=== PATIENT | female | born 1965 | race Caucasian/White ===

== ENCOUNTER 2017-10-20 18:41 | Emergency (ER) | payer BC, OTHER ==
--- NOTE | 2017-10-20 19:51 | UC ---
Abdominal Pain Female HPI - HPI Summary HPI Summary: Abdomen pain began at 0530 this am, diarrhea times one, nausea no vomiting--- - History of Current Complaint Chief Complaint: UCAbdominalPain Stated Complaint: TIRED, STOMACH ACHE Time Seen by Provider: 10/20/17 19:44 Hx Obtained From: Patient ?: No Onset/Duration: Sudden Onset, Lasting Hours, Still Present Timing: Constant Severity Initially: Moderate Severity Currently: Moderate Location: Diffuse Radiates: No Character: Aching, Cramping Aggravating Factor(s): Food Alleviating Factor(s): Nothing Associated Signs and Symptoms: Positive: Decreased Appetite, Nausea, Diarrhea Allergies/Adverse Reactions: Allergies Allergy/AdvReac Type Severity Reaction Status Date / Time No Known Allergies Allergy Verified 10/20/17 18:52 PMH/Surg Hx/FS Hx/Imm Hx Previously Healthy: No Endocrine History: Dyslipidemia Cardiovascular History: Hypertension - Surgical History Surgical History: None - Family History Known Family History: Positive: None - Social History Occupation: Employed Full-time Lives: With Family Alcohol Use: Occasionally Substance Use Type: None Smoking Status (MU): Never Smoked Tobacco Review of Systems Constitutional: Fatigue Skin: Negative Eyes: Negative ENT: Negative Respiratory: Negative Cardiovascular: Negative Gastrointestinal: Abdominal Pain, Diarrhea, Nausea Genitourinary: Negative Motor: Negative Neurovascular: Negative Musculoskeletal: Negative Neurological: Negative Psychological: Negative Is Patient Immunocompromised?: No All Other Systems Reviewed And Are Negative: Yes Physical Exam Triage Information Reviewed: Yes Appearance: Well-Appearing, No Pain Distress, Well-Nourished Vital Signs: Initial Vital Signs Temp 98.8 F 10/20/17 18:48 Pulse 134 10/20/17 18:48 Resp 12 10/20/17 18:48 BP 138/75 10/20/17 18:48 Pulse Ox 96 10/20/17 18:48 Vital Signs Reviewed: Yes Eye Exam: Normal Eyes: Positive: Conjunctiva Clear ENT Exam: Normal ENT: Positive: Normal ENT inspection, Hearing grossly normal, Pharynx normal. Negative: Nasal congestion, Nasal drainage, Trismus, Muffled voice, Hoarse voice , Dental tenderness, Sinus tenderness Dental Exam: Normal Neck exam: Normal Neck: Positive: Supple, Nontender, No Lymphadenopathy Respiratory Exam: Normal Respiratory: Positive: Chest non-tender, Lungs clear, Normal breath sounds, No respiratory distress, No accessory muscle use Cardiovascular Exam: Normal Cardiovascular: Positive: No Murmur, Pulses Normal, Brisk Capillary Refill, Tachycardia - is dehydrated sg 1.025 Abdominal Exam: Normal Abdomen Description: Positive: No Organomegaly, Soft, Other: - diffuse discomfort. Negative: CVA Tenderness (R), CVA Tenderness (L), Distended, Guarding Bowel Sounds: Positive: Present Musculoskeletal Exam: Normal Musculoskeletal: Positive: Strength Intact, ROM Intact, No Edema Neurological Exam: Normal Neurological: Positive: Alert, Muscle Tone Normal Psychological Exam: Normal Skin Exam: Normal Re-Evaluation - Re-Evaluation First Eval Change: Improved - taking po fluids well after zofran Abd Pain Female Course/Dx - Course Course Of Treatment: zofran prn advance diet slowly rest follow with pcp should symptoms worsen or failt to resolve - Differential Dx/Diagnosis Provider Diagnoses: Acute nausea/vomiting diarrhea Discharge - Discharge Plan Condition: Stable Disposition: HOME Patient Education Materials: Dehydration (ED), Acute Nausea and Vomiting (ED), Acute Diarrhea (ED), Nutrition Tips for Relief of Diarrhea (ED) Forms: *Work Release Referrals: Christy Kemp MD [Primary Care Provider] - If Needed
[2017-10-20] MEDS ORDERED: Ondansetron ODT TAB* 4 MG PO ONE ×2 (19:57→20:52)
[2017-10-20 20:49] VITALS: BP 136/75
== END 2017-10-20 21:24 | disposition home or self-care (01) ==
LOC: UCEAST 18:41
DX: R11.2 Nausea with vomiting, unspecified (principal); R19.7 Diarrhea, unspecified; R10.9 Unspecified abdominal pain; R63.8 Other symptoms and signs concerning food and fluid intake; I10 Essential (primary) hypertension; R53.83 Other fatigue
CPT/HCPCS: 81003; 99212; A9270-GY; G0463